=== PATIENT | male | born 1930 | race Caucasian/White ===

== ENCOUNTER 2016-11-17 16:48 | Observation (INO) | payer OTHER ==
[~2016-11-17] VITALS: Ht 172.7 cm; Wt 75.2 kg
[~2016-11-17 16:48] MED LIST: ACET-1311 PO; ASPCH81X PO; CMD75 PO; DORZ1SOL6 OPL; ENOX80IN SQ; GLC/500 PO; IPRASOL4 INH; LATA0.009 OPL; LNX125 PO; LSX40 PO; NTRGSL/4 UT; OXGN; PANT40TA PO; ROSU20TA PO; SITA100T3 PO; SPRIN INH; SYMIN INH; TAMS0.4C38 PO; TPRSR25 PO
[2016-11-17] MEDS ORDERED: SODIUM CHLORIDE 0.9% 150ML 150 ML IV STA (17:08)
[2016-11-17 17:21] LABS: HEMATOCRIT 35.7 % (42-52); MEAN CELL VOLUME 99.4 fL (80-100); MEAN CORPUSCULAR HEMOGLOBIN 31.5 pg (25-34); MEAN CORPUSCULAR HGB CONC 31.7 g/dl (32-36); MEAN PLATELET VOLUME 10.7 fL (7.4-10.4); PLATELET COUNT 179 K/uL (130-400); RED BLOOD COUNT 3.59 M/uL (4.7-6.1); WHITE BLOOD COUNT 9.95 K/uL (4.8-10.8)
--- NOTE | 2016-11-17 17:28 | DIAGNOSTIC IMAGING REPORT ---
CHEST ONE VIEW PORTABLE CLINICAL HISTORY: low grade fever, hypotension dyspnea COMPARISON STUDY: 09/24/2016 FINDINGS: Mild cardiomegaly. Prior median sternotomy. Trace pleural fluid right base unchanged in the prior study. Prominent pulmonary vasculature. IMPRESSION: Mild congestive failure. Electronically signed by: Yousuf Lozano M.D. 11/17/2016 5:27 PM Dictated Date/Time: 11/17/2016 5:26 PM
--- NOTE | 2016-11-17 17:32 | EMERGENCY ROOM VISIT NOTE ---
History Report prepared by Chetan: Heidy Gaffney Under the Supervision of: Dr. Glenna Barnes M.D. First contact with patient: 16:54 Chief Complaint: HYPOTENSION Stated Complaint: SYNCOPE History of Present Illness The patient is an 86 year old male who presents to the Emergency Room via EMS to be evaluated for an episode of hypotension with onset SUPPORT TEAM MEMBER. Per nursing staff , the patient has been having trouble with his blood pressure for about 5 months. His blood pressure medication was stopped. The patient is a resident at [facility] where he is undergoing rehabilitation. Today he was having orthostatic vitals taken. After standing up, the patient's blood pressure became very low and his residence staff reported that he passed out. The patient denies passing out. Afterwards, the patient was clammy. The patient denies fever, loss of appetite. The patient wears oxygen at all times. Additionally, the patient has a history of open heart surgery and he has a pacemaker in place. Source of History: patient, nursing staff Onset: 5 months ago Position: other (global) Quality: other (hypotension) Timing: other (episode ) Associated Symptoms: No LOC, No fevers Review of Systems See HPI for pertinent positives & negatives. A total of 10 systems reviewed and were otherwise negative. Past Medical & Surgical Medical Problems: (1) Benign neoplasm of colon (2) BPH (benign prostatic hypertrophy) (3) CAD (coronary artery disease) (4) Carotid stenosis (5) Chronic diastolic CHF (congestive heart failure) (6) Chronic respiratory failure (7) CKD (chronic kidney disease), stage III (8) Complete heart block (9) DM type 2 (diabetes mellitus, type 2) (10) Dyslipidemia (11) H/o hemidiaphragm dysfunction (12) History of hypotension (13) History of tobacco abuse (14) Near syncope (15) Pacemaker (16) Severe aortic stenosis Surgical Problems: (1) Aortic valve replaced (2) H/O colonoscopy (3) H/O knee surgery (4) H/O ventral hernia repair (5) History of cataract surgery (6) S/P AVR (aortic valve replacement) (7) S/P CABG (coronary artery bypass graft) (8) S/P carotid endarterectomy (9) S/P coronary artery stent placement (10) S/P placement of cardiac pacemaker Family History No pertinent family history Social History Smoking Status: Former Smoker Drug Use: none Marital Status: single Occupation Status: retired Current/Historical Medications Scheduled Aspirin (Aspirin Chewable), 81 MG PO DAILY Budesonide/Formoterol Fumarate (Symbicort 160-4.5 Mcg/Act), 2 PUFFS INH BID Carvedilol (Coreg), 3.125 MG PO BIDM Digoxin (Digoxin), 0.125 MG PO [id number] Dorzolamide Hcl-Timolol Maleat (Cosopt Oph), 1 DROPS OPL BID Furosemide (Furosemide), 40 MG PO QAM Insulin Aspart (Novolog Flexpen), 10 SQ TID Insulin Glargine (Lantus Solostar), 16 SC QPM Latanoprost 0.005% Oph (Xalatan 0.005% Oph), 1 DROP OPL HS Metformin Hcl (Glucophage), 500 MG PO BIDM Pantoprazole (Protonix), 40 MG PO DAILY Prednisone Tab (Prednisone), 10 MG PO DAILY Rosuvastatin Calcium (Crestor), 20 MG PO HS Sitagliptin Phosphate (Januvia), 100 MG PO DAILY Tamsulosin Hcl (Flomax), 0.4 MG PO QPM Tiotropium [place] (Spiriva Handihaler), 1 PUFF INH QAM Warfarin Sod (Jantoven), 7.5 MG PO DAILY Warfarin Sod (Jantoven), 5 MG PO DAILY Scheduled PRN Acetaminophen (Tylenol), 325 MG PO Q6H PRN for Pain Ipratropium-Albuterol (Duoneb), 1 TREATMENT INH Q4H PRN for SOB/Wheezing Nitroglycerin (Nitrostat), 0.4 MG UT PRN PRN for Chest Pain Allergies Coded Allergies: Aspirin (Verified Allergy, Unknown, HIVES (IF TAKES MORE THAN 81 MG), ) Physical Exam Vital Signs Date Time Temp Pulse Resp B/P Pulse Ox O2 Delivery O2 Flow Rate FiO2 11/17/16 19:39 81 20 89/62 97 Room Air 11/17/16 17:15 81 101/61 83 97/51 11/17/16 17:03 81 11/17/16 16:57 37.2 81 20 108/65 100 Room Air Physical Exam Vital signs reviewed. General: Elderly and chronically ill appearing, noted to be orthostatic. HEENT: No scleral icterus, opacity to the right cornea, neck supple. Atraumatic. Chest: Post surgical change is noted to the anterior chest wall and is well healed. Cardiovascular: Regular rate and rhythm, systolic ejection murmur. Pulmonary: Diminished breath sounds in the right lower lung tamayo. Abdomen: Soft, nontender, nondistended, positive bowel sounds. Musculoskeletal: Atraumatic, no peripheral edema. Neurologic: Patient awake alert and oriented x 3, full strength in all 4 extremities. Cranial nerves 2 through 12 grossly intact. Skin: Warm, dry, no rash Medical Decision & Procedures ER Provider Diagnostic Interpretation: X-ray results as stated below per interpretation by me and the radiologist: CHEST ONE VIEW PORTABLE CLINICAL HISTORY: low grade fever, hypotension dyspnea COMPARISON STUDY: 09/24/2016 FINDINGS: Mild cardiomegaly. Prior median sternotomy. Trace pleural fluid right base unchanged in the prior study. Prominent pulmonary vasculature. IMPRESSION: Mild congestive failure. Electronically signed by: Yousuf Lozano M.D. 11/17/2016 5:27 PM Dictated Date/Time: 11/17/2016 5:26 PM Laboratory Results 11/17/16 17:10 Red Blood Count 3.59, Mean Corpuscular Volume 99.4, Mean Corpuscular Hemoglobin 31.5, Mean Corpuscular Hemoglobin Concent 31.7, Mean Platelet Volume 10.7, Neutrophils (%) (Auto) 66.5, Lymphocytes (%) (Auto) 16.7, Monocytes (%) (Auto) 14.6, Eosinophils (%) (Auto) 1.7, Basophils (%) (Auto) 0.1, Neutrophils # (Auto ) 6.62, Lymphocytes # (Auto) 1.66, Monocytes # (Auto) 1.45, Eosinophils # (Auto ) 0.17, Basophils # (Auto) 0.01 11/17/16 17:10 Test 11/17/16 17:10 11/17/16 17:35 11/17/16 17:49 11/17/16 18:16 White Blood Count 9.95 K/uL (4.8-10.8) Red Blood Count 3.59 M/uL (4.7-6.1) Hemoglobin 11.3 g/dL (14.0-18.0) Hematocrit 35.7 % (42-52) Mean Corpuscular Volume 99.4 fL (80-100) Mean Corpuscular Hemoglobin 31.5 pg (25-34) Mean Corpuscular Hemoglobin Concent 31.7 g/dl (32-36) Platelet Count 179 K/uL (130-400) Mean Platelet Volume 10.7 fL (7.4-10.4) Neutrophils (%) (Auto) 66.5 % Lymphocytes (%) (Auto) 16.7 % Monocytes (%) (Auto) 14.6 % Eosinophils (%) (Auto) 1.7 % Basophils (%) (Auto) 0.1 % Neutrophils # (Auto) 6.62 K/uL (1.4-6.5) Lymphocytes # (Auto) 1.66 K/uL (1.2-3.4) Monocytes # (Auto) 1.45 K/uL (0.11-0.59) Eosinophils # (Auto) 0.17 K/uL (0-0.5) Basophils # (Auto) 0.01 K/uL (0-0.2) RDW Standard Deviation 53.6 fL (36.4-46.3) RDW Coefficient of Variation 14.7 % (11.5-14.5) Immature Granulocyte % (Auto) 0.4 % Immature Granulocyte # (Auto) 0.04 K/uL (0.00-0.02) Prothrombin Time 23.1 SECONDS (9.0-12.0) Prothromb Time International Ratio 2.1 (0.9-1.1) Activated Partial Thromboplast Time 33.2 SECONDS (21.0-31.0) Partial Thromboplastin Ratio 1.3 Anion Gap 7.0 mmol/L (3-11) Est Creatinine Clear Calc Drug Dose 29.6 ml/min Estimated GFR () 41.1 Estimated GFR (Non- 35.5 BUN/Creatinine Ratio 19.5 (10-20) Calcium Level 9.0 mg/dl (8.5-10.1) Magnesium Level 1.8 mg/dl (1.8-2.4) Total Bilirubin 0.5 mg/dl (0.2-1) Direct Bilirubin < 0.1 mg/dl (0-0.2) Aspartate Amino Transf (AST/SGOT) 22 U/L (15-37) Alanine Aminotransferase (ALT/SGPT) 20 U/L (12-78) Alkaline Phosphatase 61 U/L (45-117) Total Creatine Kinase 145 U/L (39-308) Creatine Kinase MB 3.5 ng/ml (0.5-3.6) Creatine Kinase MB Ratio 2.4 (0-3.0) Troponin I 0.127 ng/ml (0-0.045) Total Protein 6.8 gm/dl (6.4-8.2) Albumin 2.9 gm/dl (3.4-5.0) Digoxin Level 1.0 ng/ml (0.8-2.0) Urine Color YELLOW Urine Appearance CLEAR (CLEAR) Urine pH 7.0 (4.5-7.5) Urine Specific [place] 1.003 (1.000-1.030) Urine Protein TRACE (NEG) Urine Glucose (UA) NEG (NEG) Urine Ketones NEG (NEG) Urine Occult Blood TRACE (NEG) Urine Nitrite NEG (NEG) Urine Bilirubin NEG (NEG) Urine Urobilinogen NEG (NEG) Urine Leukocyte Esterase NEG (NEG) Urine WBC (Auto) 1-5 /hpf (0-5) Urine RBC (Auto) 0-4 /hpf (0-4) Urine Hyaline Casts (Auto) 1-5 /lpf (0-5) Urine Epithelial Cells (Auto) 10-20 /lpf (0-5) Urine Bacteria (Auto) NEG (NEG) Bedside Troponin I 0.100 ng/ml (0-0.045) Bedside Lactic Acid Venous 1.26 mmol/L (0.90-1.70) Laboratory results per my review. Medications Administered Medications (Trade) Dose Ordered Sig/Jelly Route Start Time Stop Time Status Last Admin Dose Admin Sodium Chloride (Nss 150ml) 150 ml @ 999 mls/hr Q10M STAT IV 11/17/16 17:08 11/17/16 17:17 DC 11/17/16 17:20 999 MLS/HR ECG Indication: syncope Rate (beats per minute): 82 Rhythm: sinus rhythm Findings: 1st degree AV block, RBBB, no acute ischemic change, left axis deviation, no ectopy, other (repolarization abnormality) ED Course 1709: Past medical records reviewed. The patient was evaluated in room B7. A complete history and physical examination was performed. 1708: Sodium Chloride 150 ml @ 999 mls/hr IV 1850: I discussed the case with Dr. Rahman ([facility]); he will further evaluate the patient. Medical Decision The patient is an 86 year old male who presents to the ED with complaints of hypotension. Differentials include: Differential diagnosis: Etiologies such as benign positional vertigo, dehydration, hypovolemia, anemia, tumor, infection, hypoglycemia, electrolyte abnormalities, cardiac sources, intracerebral event, toxicologic, neurologic, as well as others were entertained. This patient was evaluated and appeared to be in no significant distress. IV access was obtained and laboratory work was drawn. Patient was placed on the manager web application and found to be in a normal sinus rhythm. He was hydrated with normal saline solution for a mild hypotension. Patient was asymptomatic. Laboratory work reveals a mild elevation of the troponin at 0.10. Review the patient's records indicates that he is always slightly elevated with his troponin. EKG reveals no evidence of acute ischemia or ectopy. Chest x-ray reveals mild congestive changes. Case was discussed with the hospitalist service. He will evaluate the patient for further management. Consults Time Called: 1847 Consulting Physician: Dr. Rahman ([facility]); Returned Call: 1849 I discussed the [facility] he will further evaluate the patient. Impression Primary Impression: Elevated troponin Additional Impressions: Near syncope Hypotension Scribe Attestation The scribe's documentation has been prepared under my direction and personally reviewed by me in its entirety. I confirm that the note above accurately reflects all work, treatment, procedures, and medical decision making performed by me. Departure Information Dispostion Being Evaluated By Hospitalist Referrals Dave Harris M.D. (PCP) Patient Instructions [facility] Problem Qualifiers Additional Impressions: Hypotension Hypotension type: orthostatic hypotension Qualified Codes: I95.1 - Orthostatic hypotension
[2016-11-17 17:36] LABS: BASO % 0.1 %; BASO ABS # 0.01 K/uL (0-0.2); COMPLETE YES; EOS % 1.7 %; IG% 0.4 %; LYMPH % 16.7 %; LYMPH ABS # 1.66 K/uL (1.2-3.4); MONO % 14.6 %; NEUT % 66.5 %
[2016-11-17 17:45] LABS: ALT/SGPT 20 U/L (12-78); BLOOD UREA NITROGEN 33 mg/dl (7-18); BUN/CREATININE RATIO 19.5 (10-20); CARBON DIOXIDE 37 mmol/L (21-32); CHLORIDE 97 mmol/L (98-107); GLUCOSE 114 mg/dl (70-99); MAGNESIUM 1.8 mg/dl (1.8-2.4); POTASSIUM 3.7 mmol/L (3.5-5.1); SODIUM 141 mmol/L (136-145)
[2016-11-17 17:51] LABS: ALKALINE PHOSPHATASE 61 U/L (45-117); AST/SGOT 22 U/L (15-37); CKMB/CK RATIO 2.4 (0-3.0)
[2016-11-17 17:53] LABS: URINE APPEARANCE CLEAR (CLEAR); URINE BILIRUBIN NEG (NEG); URINE COLOR YELLOW; URINE NITRITE NEG (NEG); URINE SPECIFIC GRAVITY 1.003 (1.000-1.030); UROBILINOGEN NEG (NEG); ZZUR CULT IF INDIC CLEAN CATCH NO
[2016-11-17 17:55] LABS: MANUAL MICROSCOPIC REQUIRED? NO; REVIEW REQ? NO
[2016-11-17] MEDS ORDERED: NVLGI/PEN SQ (19:08)
[2016-11-17] MEDS ORDERED: PRED10TA PO (19:08)
[2016-11-17] MEDS ORDERED: INSDGIPEN SC (19:08)
[2016-11-17] MEDS ORDERED: CARV3.122 PO (19:08)
[2016-11-17] MEDS ORDERED: WARF5TAB7 PO (19:08)
[2016-11-17] MEDS ORDERED: WARF7.5T4 PO (19:08)
[2016-11-17 19:44] LABS: INR 2.1 (0.9-1.1); PARTIAL THROMBOPLASTIN RATIO 1.3; PROTHROMBIN TIME (PATIENT) 23.1 SECONDS (9.0-12.0)
[2016-11-17] MEDS ORDERED: IV FLUIDS COMPLETED PRN (20:00)
--- NOTE | 2016-11-17 20:06 | History and Physical ---
History & Physical Date & Time of Service: Nov 17, 2016 at 19:41 Chief Complaint: Syncope Primary Care Physician: Dave Harris M.D. History of Present Illness Source: patient This is an 86 y/o male with PMHx of CKD stage 3, CAD s/p CABG, s/p AVR, IDDM, Afib on Coumadin, Diastolic CHF on Lasix, Dyslipidemia and other problems as outlined below who presents to the ED from [facility] with near-syncopal episode this afternoon. Pt has been residing at [facility] for rehabilitation since an admission for CHF in June 2016. He has been having trouble with hypotension for the past few months and was recently taken off all of his antihypertensive medications (aside from metoprolol). Today, nursing staff stood the patient up to check orthostatic vitals and his BP dropped significantly and he passed out. Per patient he does not think that he completely lost consciousness. He denies hitting his head. Pt denies fever/ chills, diaphoresis, chest pain, palpitations, SOB, abd pain, N/V, bowel or bladder issues, LE edema and calf pain. In the ED, patient was hypotensive on arrival. Pt is afebrile with no leukocytosis. HgB 11.3. creat 1.7. Trop 0.159. EKG no acute ischemic change. CXR mild congestion. Pt received gentle fluid in ED and will be admitted for further evaluation and treatment. Past Medical/Surgical History Medical Problems: (1) Benign neoplasm of colon Status: Chronic (2) BPH (benign prostatic hypertrophy) Status: Chronic (3) CAD (coronary artery disease) Status: Chronic (4) Carotid stenosis Status: Chronic (5) Chronic diastolic CHF (congestive heart failure) Permanent Comment: EF 60-64% on echo 02/21/16 Status: Chronic (6) Chronic respiratory failure Status: Chronic (7) CKD (chronic kidney disease), stage III Status: Chronic (8) Complete heart block Status: Chronic (9) DM type 2 (diabetes mellitus, type 2) Status: Chronic (10) Dyslipidemia Status: Chronic (11) H/o hemidiaphragm dysfunction Permanent Comment: right Status: Chronic (12) History of hypotension Status: Chronic (13) History of tobacco abuse Status: Chronic (14) Severe aortic stenosis Status: Chronic Surgical Problems: (1) Aortic valve replaced Status: Resolved (2) H/O colonoscopy Permanent Comment: 2007 sigmoid diverticulosis, hyperplastic polyp Status: Chronic (3) H/O knee surgery Status: Chronic (4) H/O ventral hernia repair Status: Chronic (5) History of cataract surgery Status: Chronic (6) S/P AVR (aortic valve replacement) Status: Chronic (7) S/P CABG (coronary artery bypass graft) Permanent Comment: x1 Status: Chronic (8) S/P carotid endarterectomy Permanent Comment: left Status: Chronic (9) S/P coronary artery stent placement Permanent Comment: 1998- stenting of the RCA and LAD 2009- repeat stenting of RCA and LAD Status: Chronic (10) S/P placement of cardiac pacemaker Permanent Comment: 2011 Status: Chronic Family History No pertinent family history Social History Smoking Status: Former Smoker (quit 1965) Alcohol Use: none Drug Use: none Marital Status: single Housing status: [facility] ([facility] Occupational Status: retired Allergies Coded Allergies: Aspirin (Verified Allergy, Unknown, HIVES (IF TAKES MORE THAN 81 MG), ) Home Medications Scheduled Aspirin (Aspirin Chewable), 81 MG PO DAILY Budesonide/Formoterol Fumarate (Symbicort 160-4.5 Mcg/Act), 2 PUFFS INH BID Carvedilol (Coreg), 3.125 MG PO BIDM Digoxin (Digoxin), 0.125 MG PO [id number]@1600 Dorzolamide Hcl-Timolol Maleat (Cosopt Oph), 1 DROPS OPL BID Furosemide (Furosemide), 40 MG PO QAM Insulin Aspart (Novolog Flexpen), 10 SQ TID Insulin Glargine (Lantus Solostar), 16 SC QPM Latanoprost 0.005% Oph (Xalatan 0.005% Oph), 1 DROP OPL HS Metformin Hcl (Glucophage), 500 MG PO BIDM Pantoprazole (Protonix), 40 MG PO DAILY Prednisone Tab (Prednisone), 10 MG PO DAILY Rosuvastatin Calcium (Crestor), 20 MG PO HS Sitagliptin Phosphate (Januvia), 100 MG PO DAILY Tamsulosin Hcl (Flomax), 0.4 MG PO QPM Tiotropium [place] (Spiriva Handihaler), 1 PUFF INH QAM Warfarin Sod (Jantoven), 7.5 MG PO DAILY Warfarin Sod (Jantoven), 5 MG PO DAILY Scheduled PRN Acetaminophen (Tylenol), 325 MG PO Q6H PRN for Pain Ipratropium-Albuterol (Duoneb), 1 TREATMENT INH Q4H PRN for SOB/Wheezing Nitroglycerin (Nitrostat), 0.4 MG UT PRN PRN for Chest Pain Review of Systems Constitutional: No chills, No fatigue, No fever, No sweats, No weakness Eyes: + 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), No worsening of vision Respiratory: No cough, No shortness of breath Cardiovascular: No chest pain, No claudication, No edema, No palpitations Abdomen: No GI bleeding, No constipation, No diarrhea, No nausea, No pain, No vomiting Musculoskeletal: No calf pain, No swelling Genitourinary - Male: No dysuria Neurologic: No weakness Psychiatric: No depression symptoms Endocrine: No fatigue Hematologic / Lymphatic: No abnormal bleeding/bruising Integumentary: No new/changing skin lesions Physical Exam Vital Signs Date Time Temp Pulse Resp B/P Pulse Ox O2 Delivery O2 Flow Rate FiO2 11/17/16 17:15 81 101/61 83 97/51 11/17/16 17:03 81 11/17/16 16:57 37.2 81 20 108/65 100 Room Air General Appearance: WD/WN, no apparent distress, + pertinent finding (Pt is laying comfortably in bed ) Head: normocephalic, atraumatic Eyes: normal inspection, PERRL, EOMI, + pertinent finding (R eye opaque ( chronic finding)) ENT: hearing grossly normal Neck: supple Respiratory/Chest: chest non-tender, lungs clear, normal breath sounds, no respiratory distress Cardiovascular: regular rate, rhythm, no edema, no murmur Abdomen/GI: normal bowel sounds, non tender, soft Back: normal inspection Extremities/Musculoskelatal: normal inspection, no calf tenderness, no pedal edema Neurologic/Psych: alert, normal mood/affect, oriented x 3 Skin: normal color, warm/dry Diagnostics Laboratory Results Results Past 24 Hours Test 11/17/16 17:10 11/17/16 17:35 11/17/16 17:49 11/17/16 18:16 Range/Units White Blood Count 9.95 4.8-10.8 K/uL Red Blood Count 3.59 4.7-6.1 M/uL Hemoglobin 11.3 14.0-18.0 g/dL Hematocrit 35.7 42-52 % Mean Corpuscular Volume 99.4 80-100 fL Mean Corpuscular Hemoglobin 31.5 25-34 pg Mean Corpuscular Hemoglobin Concent 31.7 32-36 g/dl Platelet Count 179 130-400 K/uL Mean Platelet Volume 10.7 7.4-10.4 fL Neutrophils (%) (Auto) 66.5 % Lymphocytes (%) (Auto) 16.7 % Monocytes (%) (Auto) 14.6 % Eosinophils (%) (Auto) 1.7 % Basophils (%) (Auto) 0.1 % Neutrophils # (Auto) 6.62 1.4-6.5 K/uL Lymphocytes # (Auto) 1.66 1.2-3.4 K/uL Monocytes # (Auto) 1.45 0.11-0.59 K/uL Eosinophils # (Auto) 0.17 0-0.5 K/uL Basophils # (Auto) 0.01 0-0.2 K/uL RDW Standard Deviation 53.6 36.4-46.3 fL RDW Coefficient of Variation 14.7 11.5-14.5 % Immature Granulocyte % (Auto) 0.4 % Immature Granulocyte # (Auto) 0.04 0.00-0.02 K/uL Sodium Level 141 136-145 mmol/L Potassium Level 3.7 3.5-5.1 mmol/L Chloride Level 97 98-107 mmol/L Carbon Dioxide Level 37 21-32 mmol/L Anion Gap 7.0 3-11 mmol/L Blood Urea Nitrogen 33 7-18 mg/dl Creatinine 1.70 0.60-1.40 mg/dl Est Creatinine Clear Calc Drug Dose 29.6 ml/min Estimated GFR () 41.1 Estimated GFR (Non- 35.5 BUN/Creatinine Ratio 19.5 10-20 Random Glucose 114 70-99 mg/dl Calcium Level 9.0 8.5-10.1 mg/dl Magnesium Level 1.8 1.8-2.4 mg/dl Total Bilirubin 0.5 0.2-1 mg/dl Direct Bilirubin < 0.1 0-0.2 mg/dl Aspartate Amino Transf (AST/SGOT) 22 15-37 U/L Alanine Aminotransferase (ALT/SGPT) 20 12-78 U/L Alkaline Phosphatase 61 45-117 U/L Total Creatine Kinase 145 39-308 U/L Creatine Kinase MB 3.5 0.5-3.6 ng/ml Creatine Kinase MB Ratio 2.4 0-3.0 Total Protein 6.8 6.4-8.2 gm/dl Albumin 2.9 3.4-5.0 gm/dl Urine Color YELLOW Urine Appearance CLEAR CLEAR Urine pH 7.0 4.5-7.5 Urine Specific [place] 1.003 1.000-1.030 Urine Protein TRACE NEG Urine Glucose (UA) NEG NEG Urine Ketones NEG NEG Urine Occult Blood TRACE NEG Urine Nitrite NEG NEG Urine Bilirubin NEG NEG Urine Urobilinogen NEG NEG Urine Leukocyte Esterase NEG NEG Urine WBC (Auto) 1-5 0-5 /hpf Urine RBC (Auto) 0-4 0-4 /hpf Urine Hyaline Casts (Auto) 1-5 0-5 /lpf Urine Epithelial Cells (Auto) 10-20 0-5 /lpf Urine Bacteria (Auto) NEG NEG Bedside Troponin I 0.100 0-0.045 ng/ml Bedside Lactic Acid Venous 1.26 0.90-1.70 mmol/L Microbiology Results 11/17/16 Blood Culture, Received Pending 11/17/16 Blood Culture, Received Pending Diagnostic Radiology CXR IMPRESSION: Mild congestive failure. EKG EKG: sinus rhythm at 82 bpm with 1* AV block, RBBB and no acute ischemic change Impression Assessment and Plan NEAR-SYNCOPAL EPISODE LIKELY SECONDARY TO HYPOTENSION pt presented with near-syncopal episode with standing -admit observation status to telemetry -likely secondary to hypotension, ? over diuresis -hold Lasix -see Dr. Rahman's addendum for further Assessment and Plan ELEVATED TROPONIN -h/o CAD s/p CABG -Trop 0.159; chronically elevated trop -monitor with serial enzymes -EKG-no acute ischemic change -cont ASA, BB and statin -pt currently denies anginal sxs MATTHIEU ON CKD STAGE 3 -baseline creatinine 1.2-1.4; creatinine currently 1.7 -received gentle IVF in ED -hold Lasix for now -monitor with daily prp and avoid nephrotoxic agents when able PAF ON COUMADIN -EKG: sinus rhythm -INR therapeutic; cont to monitor daily -cont Coumadin DIASTOLIC CHF ON LASIX -pt does not appear volume overloaded -echo 09/2016 EF 50-55% with mild tricuspid regurg and mild mitral regurg -hold Lasix for now due to MATTHIEU/hypotension -cont BB and digoxin -check dig level -monitor volume status with I&Os and daily weights H/O PE -cont Coumadin GERD -cont PPI DYSLIPIDEMIA -cont statin DVT PROPHYLAXIS -on Coumadin CODE STATUS -FULL CODE per discussion with patient upon admission DISPO Observation status until further workup is complete. Pt seen in collaboration with Dr. Rahman. Please see his addendum for further details. Thanks! Assessment/Plan IM ATTENDING : Patient seen examined. Preceding documentation by Ms. Anitha Landeros PA-C, reviewed. FINAL ASSESSMENT AND PLAN as follows : 1. Near syncope secondary to above to hypotension multifactorial : recent outpatient beta mario regimen changes (outpatient Lopressor recently switched to Coreg). ARF, mild clinical dehydration. 2. Chronic respiratory failure secondary to chronic obstructive pulmonary disease/ILD past tobacco abuse pulmo status at baseline px has been on Prednisone 10 mg daily (from steroid taper from 09/2017 hosp [facility] for COPD exacerbation) for over a month now 3. hx SSS sp PPM, INR tx 4. hx CAD sp CABG/stenting/hx bioprosthetic AVR 5. CVA/PVD as per records 6. DM2 insulin requiring suboptimal control as of recent HgA1c, 8.6 as of August 2016. OBS PCU Appropriate to hold antihypertensives and diuretics for now. Would favor discontinuing Coreg and reverting back to lower dose of Lopressor once px normotensive Will defer issue to Cardiology. (Patient known to Dr. Marx) Monitor creatinine response to IV fluids. Hold home diuretics, FLORA inhibitor for now until creatinine at baseline Decrease Prednisone to 5 mg daily, will d/w AM provider about taper schedule Basal insulin, ISS BG goal 140-180. Carb count coverage indicated for suboptimal blood sugar control. Patient due for hemoglobin A1c recheck. DVT prophylaxis, Coumadin INR 2-3. DNR.
[2016-11-17] MEDS ORDERED: ONDANSETRON INJ 2 MG/ML 2 ML VIAL IV PRN (20:15)
[2016-11-17] MEDS ORDERED: NITROGLYCERIN 0.4 MG SL PER TAB CHARGE UT PRN (20:15)
[2016-11-17] MEDS ORDERED: TRAMADOL HCL 50 MG TAB PO PRN (20:15)
[2016-11-17] MEDS ORDERED: DEXTROSE 50% 50 ML SYR IV PRN (20:15)
[2016-11-17] MEDS ORDERED: ACETAMINOPHEN 325 MG TAB PO PRN ×2 (20:15)
[2016-11-17] MEDS ORDERED: NITROGLYCERIN 0.4 MG SL PER TAB CHARGE SL PRN (20:15)
[2016-11-17] MEDS ORDERED: GLUCAGON FOR INJ 1 MG VIAL SQ PRN (20:15)
[2016-11-17] MEDS ORDERED: GLUCOSE 40% GEL 15 GM TUBE PO PRN (20:15)
[2016-11-17] MEDS ORDERED: ALBUT/IPRATROP 3MG/0.5MG NEB 3 ML VIAL INH PRN (20:15)
[2016-11-17] MEDS ORDERED: HYDROmorphone INJ 0.5 MG/0.5 ML SYR IV PRN (20:15)
[2016-11-17] MEDS ORDERED: GLUCOSE 10 TABS/TUBE PO PRN (20:15)
[2016-11-17] MEDS ORDERED: SODIUM CHLORIDE 0.9% 500ML 500 ML IV ONE (20:15)
[2016-11-17 20:35] VITALS: BP 103/67; PULSE 80; TEMP 36.5; O2SAT 90
[2016-11-17] MEDS: INSULIN ASPART 100 UNITS/ML 3 ML PEN SC SCH (21:00)
[2016-11-17] MEDS ORDERED: WARFARIN SOD 3 MG TAB PO ONE (21:00)
--- NOTE | 2016-11-17 21:36 | HISTORY & PHYSICAL EXAMINATION ---
DATE OF ADMISSION: 11/17/2016 IM ATTENDING : Patient seen examined. Preceding documentation by Ms. Anitha Landeros PA-C, reviewed. FINAL ASSESSMENT AND PLAN as follows : 1. Near syncope secondary to above to hypotension multifactorial : recent outpatient beta mario regimen changes (outpatient Lopressor recently switched to Coreg). ARF, mild clinical dehydration. 2. Chronic respiratory failure secondary to chronic obstructive pulmonary disease/ILD past tobacco abuse pulmo status at baseline px has been on Prednisone 10 mg daily (from steroid taper from 09/2017 hosp [facility] for COPD exacerbation) for over a month now 3. hx SSS sp PPM, INR tx 4. hx CAD sp CABG/stenting/hx bioprosthetic AVR 5. CVA/PVD as per records 6. DM2 insulin requiring suboptimal control as of recent HgA1c, 8.6 as of August 2016. OBS PCU Appropriate to hold antihypertensives and diuretics for now. Would favor discontinuing Coreg and reverting back to lower dose of Lopressor once px normotensive Will defer issue to Cardiology. (Patient known to Dr. Marx) Monitor creatinine response to IV fluids. Hold home diuretics, FLORA inhibitor for now until creatinine at baseline Decrease Prednisone to 5 mg daily, will d/w AM provider about taper schedule Basal insulin, ISS BG goal 140-180. Carb count coverage indicated for suboptimal blood sugar control. Patient due for hemoglobin A1c recheck. DVT prophylaxis, Coumadin INR 2-3. DNR. MTDD
[2016-11-17] MEDS: LATANOPROST 0.005% OP SOLN 2.5 ML BTL OPL SCH (22:20)
[2016-11-17] MEDS: DORZOLAMIDE/TIMOLOL 22.3/6.8MG/ML 10 ML BTL OPL SCH (22:20)
[2016-11-17] MEDS: BUDESONIDE/FORMOTEROL FUMARATE 160/4.5 60 PUFFS/INHALER INH SCH (22:20)
[2016-11-17] MEDS: ROSUVASTATIN CALCIUM 20 MG TAB PO SCH (22:24)
[2016-11-17] MEDS: TAMSULOSIN HCL 0.4 MG CAP PO SCH (22:25)
[2016-11-17] MEDS: INSULIN GLARGINE SOLOSTAR 100 UNITS/ML 3 ML PEN SC SCH (22:29)
[2016-11-17 22:31] VITALS: BP 91/49; PULSE 78
[2016-11-17 22:33] VITALS: BP 103/67; PULSE 80; TEMP 36.5; O2SAT 90; Ht 172.7 cm; Wt 75.2 kg
[2016-11-17 23:27] VITALS: BP 103/62; PULSE 75; TEMP 36.5; O2SAT 100
[2016-11-18] VITALS (10 sets, daily range): BP systolic 81–133; BP diastolic 39–73; PULSE 70–76; TEMP 36.3–36.7; O2SAT 95–99
[2016-11-18 05:38] LABS: BASO % 0.1 %; BASO ABS # 0.01 K/uL (0-0.2); COMPLETE YES; EOS % 2.6 %; HEMATOCRIT 32.9 % (42-52); IG% 0.4 %; LYMPH % 19.1 %; LYMPH ABS # 1.49 K/uL (1.2-3.4); MEAN CELL VOLUME 99.4 fL (80-100); MEAN CORPUSCULAR HEMOGLOBIN 30.8 pg (25-34); MEAN PLATELET VOLUME 9.9 fL (7.4-10.4); MONO % 15.3 %; NEUT % 62.5 %; PLATELET COUNT 147 K/uL (130-400); RED BLOOD COUNT 3.31 M/uL (4.7-6.1); WHITE BLOOD COUNT 7.82 K/uL (4.8-10.8)
[2016-11-18 05:46] LABS: INR 1.9 (0.9-1.1); PROTHROMBIN TIME (PATIENT) 21.3 SECONDS (9.0-12.0)
[2016-11-18 06:07] LABS: BUN/CREATININE RATIO 19.2 (10-20); CALCIUM 8.8 mg/dl (8.5-10.1); CREATININE 1.3 mg/dl (0.60-1.40); POTASSIUM 3.8 mmol/L (3.5-5.1)
[2016-11-18] MEDS: BUDESONIDE/FORMOTEROL FUMARATE 160/4.5 60 PUFFS/INHALER INH SCH ×2 (08:14→20:51)
[2016-11-18] MEDS: PANTOprazole SOD 40 MG TAB PO SCH (08:15)
[2016-11-18] MEDS: ASPIRIN 81 MG CHEW PO SCH (08:15)
[2016-11-18] MEDS: DORZOLAMIDE/TIMOLOL 22.3/6.8MG/ML 10 ML BTL OPL SCH ×2 (08:16→20:52)
[2016-11-18] MEDS: TIOTROPIUM BROMIDE 5 PUFF/90 MCG INH INH SCH (08:17)
[2016-11-18] MEDS: INSULIN ASPART 100 UNITS/ML 3 ML PEN SC SCH ×4 (08:20→20:57)
[2016-11-18] MEDS: INSULIN GLARGINE SOLOSTAR 100 UNITS/ML 3 ML PEN SC SCH ×2 (08:21→20:57)
[2016-11-18] MEDS ORDERED: SODIUM CHLORIDE 0.9% 500ML 500 ML IV ONE (11:30)
--- NOTE | 2016-11-18 13:37 | CARDIOLOGY CONSULTATION ---
DATE OF CONSULTATION: 11/18/2016 CONSULTATION REQUESTED BY: Dr. Rahman. REASON FOR CONSULTATION: Hypotension and medication management. HISTORY OF PRESENT ILLNESS: Mr. Richardson is a very pleasant and very medically complicated 86-year-old gentleman who normally follows with Dr. Marx of our cardiology practice. He presented from [facility] with a report of presyncope. The patient states he is not quite sure what happened. He states remembering yesterday he just was walking and all of a sudden felt very tired and lightheaded and felt himself going down to the ground. He states his legs seemed to be slowly letting him down onto the ground. He did not injure himself and there was no report of actual loss of consciousness. He was found to be hypotensive and brought into the Emergency Department. Again in the Emergency Department, he was found to be hypotensive. He was given some IV fluids and he started to feel better. All of his antihypertensives have actually been held over the last several days except for his metoprolol, which was continued. Otherwise, he states he has been feeling well. He states he has had a good appetite and eating well. He has been taking his medications as directed. He denies experiencing any chest pain, shortness of breath, palpitations or flu-like symptoms. PAST SURGICAL HISTORY: 1. PCI to the RCA and LAD multiple times. 2. Bioprosthetic AVR and coronary bypass grafting x1 with a vein graft to the PDA in 2011. 3. [employer] dual-chamber permanent pacemaker placement. 4. Left carotid endarterectomy. 5. Knee surgery. 6. Hernia repair. 7. Cataract surgery. 8. Polypectomy. MEDICAL ILLNESSES: 1. Coronary artery disease. 2. Aortic stenosis, status post AVR. 3. Postoperative complete heart block, status post dual-chamber permanent pacemaker placement. 4. Chronic history of hypotension. 5. Carotid occlusive disease. 6. Tobacco abuse. 7. COPD. 8. History of PE, on chronic Coumadin therapy. 9. Diabetes. 10. Interstitial lung disease. 11. Benign prostatic hypertrophy. 12. Paroxysmal atrial fibrillation. FAMILY HISTORY: Noncontributory. SOCIAL HISTORY: The patient has a significant smoking history. Denies any alcohol or recreational drug use. Again, he currently only resides at [facility]. REVIEW OF SYSTEMS: As per HPI, all other review of systems reviewed and negative at this time. ALLERGIES: 1. AMOXICILLIN. 2. ASPIRIN. 3. ERYTHROMYCIN. 4. IBUPROFEN. 5. NIACIN. MEDICATIONS AN OUTPATIENT: 1. Lasix 40 mg daily. 2. Digoxin 0.125 mg every Saturday, Saturday, Saturday, and Saturday. 3. Crestor 20 mg daily. 4. Coreg 3.125 mg b.i.d. 5. Januvia daily. 6. Metformin b.i.d. 7. Protonix daily. 8. Insulin as directed. 9. Coumadin as directed by the Coumadin clinic. 10. Flomax 0.4 mg daily. 11. Two liters of oxygen via nasal cannula as needed. PHYSICAL EXAMINATION: VITALS: Temperature 36.7, pulse 72, respiratory rate 12, and blood pressure 91/52. GENERAL: Awake, alert, and oriented x3, no acute distress, very hard of hearing. Sitting upright in bed. HEENT: Normocephalic and atraumatic. Extraocular muscles intact. Anicteric sclerae with significant sclerosis of the right eye. SKIN: Warm and dry. NECK: Bilateral 3/6 carotid bruits. No JVD. CARDIOVASCULAR: Regular. Positive S4. Normal S1 and S2. No S3. A 2/6 mid to late systolic ejection murmur greatest at the right sternal border second intercostal space without radiation. No rubs. PULMONARY: Clear to auscultation bilaterally. No rales, rhonchi, or wheezing. ABDOMEN: Bowel sounds x4. Soft. No rebound, guarding, or tenderness. No organomegaly. EXTREMITIES: No clubbing, cyanosis or edema. +2 pedal pulses bilaterally. SKIN: Warm and dry. TEST RESULTS: A 12-lead EKG performed today independently reviewed at this time showed sinus rhythm with first-degree AV block, bifascicular block. No significant change compared to previous studies. LABORATORY STUDIES OF SIGNIFICANCE: Sodium 145, potassium 3.8, BUN 25, and creatinine 1.3. IMPRESSION: 1. Symptomatic hypotension. 2. Diastolic dysfunction with normal LV systolic function. 3. Status post aortic valve replacement. 4. History of complete heart block, status post dual-chamber permanent pacemaker placement. 5. Paroxysmal atrial fibrillation. 6. Chronic obstructive pulmonary disease. 7. Interstitial lung disease. 8. Prerenal azotemia. RECOMMENDATIONS: It was my pleasure to see Mr. Richardson in reevaluation today. From a cardiac standpoint, I agree with the discontinuation of his cardiac medications. He can be continued on his digoxin as he has been, given the fact that there are no peripheral effects to this medication. Otherwise, he still to my exam is volume overload. He looks a little dry and is dry by numbers. So, I will give another 500 mL of normal saline slowly at this time for further blood pressure support. The only medication he is on at this point that could be affecting his blood pressure is his Flomax; however, that should be continued to help with urination. His diuretics will be held at this time as well. ABELARDO
[2016-11-18] MEDS ORDERED: DIGOXIN 0.125 MG TAB PO SCH (16:00)
--- NOTE | 2016-11-18 18:51 | Progress Note ---
Internal Med Progress Note Date of Service: Nov 18, 2016. Provider Documentation: SUBJECTIVE: Patient is seen and examined at bedside. States having intermittent dizziness. Denies any chest pain, SOB, blurry vision, headache. OBJECTIVE: Vital Signs-as noted below Physical Exam: General Appearance:Moderately built and nourished, no apparent distress Head: normocephalic, Atraumatic Eyes: normal inspection, EOMI, PERRLA, +Sclerosis of R eye Neck: supple, Trachea midline Respiratory/Chest: Normal breath sounds, + mild creps at bases, No accessory muscle use Cardiovascular: S1, S2, NSR, + systolic murmur Abdomen/GI:Soft, Non tender, Bowel sounds present Extremities/Musculoskelatal:normal inspection, no calf tenderness, cyanosis, clubbing, edema Neurologic/Psych:AAOX3, grossly no focal neurological deficits Skin: normal color, warm Lab data as noted below. ASSESSMENT & PLAN: NEAR-SYNCOPAL: Secondary to Hypotension H/O recent outpatient beta mario regimen changes (outpatient Lopressor recently switched to Coreg) Discontinue coreg, diuretics and ACEs for now Continue digoxin, flomax IVF PRN for hypotension/dizziness and reassess Appreciate cardiology input ELEVATED TROPONIN H/O CAD s/p CABG, hx bioprosthetic AVR Trop 0.159; chronically elevated trop EKG-no acute ischemic change cont ASA, statin for now MATTHIEU ON CKD STAGE III Baseline cr:1.2-1.4 Resolved with IV fluids Avoid nephrotoxic agents when able DM II: Last A1C:8.6 in Aug 2016 Continue ISS, Lantus Accu checks Repeat A1C:pending CHRONIC COPD: No signs of exacerbation Patient is on Prednisone 10 mg daily (from steroid taper from 09/2017 given for COPD exacerbation) Continue steroid taper at 5mg daily PAF ON COUMADIN EKG: sinus rhythm INR therapeutic; cont to monitor continue Coumadin CHRONIC DIASTOLIC CHF No signs of decompensation Last ECHO: In Dec:EF 50-55% hold diuretics secondary to MATTHIEU/hypotension H/O PE continue Coumadin GERD continue PPI DYSLIPIDEMIA continue statin DVT Px On Coumadin CODE STATUS DNR DISPOSITION: Likely to be discharged in next 24-48 hours Vital Signs: Date Time Temp Pulse Resp B/P Pulse Ox O2 Delivery O2 Flow Rate FiO2 11/18/16 16:08 74 11/18/16 14:52 36.6 75 16 100/60 99 Nasal Cannula 2.0 11/18/16 12:00 95 Room Air 2.0 11/18/16 11:58 36.5 76 16 81/39 95 Nasal Cannula 2.0 89/45 11/18/16 08:00 99 Room Air 2.0 11/18/16 07:13 36.7 72 18 91/52 99 Room Air 11/18/16 04:13 36.5 75 20 91/57 98 Nasal Cannula 2.0 11/18/16 04:00 Nasal Cannula 2.0 11/18/16 00:00 Nasal Cannula 2.0 11/17/16 23:27 36.5 75 20 103/62 100 Nasal Cannula 2.0 11/17/16 22:33 36.5 80 24 103/67 90 Nasal Cannula 2.0 11/17/16 22:31 78 91/49 11/17/16 20:35 36.5 80 24 103/67 90 Nasal Cannula 2.0 11/17/16 20:30 82 22 100/48 96 Nasal Cannula 2.0 11/17/16 19:39 81 20 89/62 97 Room Air Lab Results: Results Past 24 Hours Test 11/17/16 21:16 11/18/16 05:15 11/18/16 07:28 11/18/16 11:29 Range/Units Bedside Glucose 123 97 185 70-99 mg/dl White Blood Count 7.82 4.8-10.8 K/uL Red Blood Count 3.31 4.7-6.1 M/uL Hemoglobin 10.2 14.0-18.0 g/dL Hematocrit 32.9 42-52 % Mean Corpuscular Volume 99.4 80-100 fL Mean Corpuscular Hemoglobin 30.8 25-34 pg Mean Corpuscular Hemoglobin Concent 31.0 32-36 g/dl Platelet Count 147 130-400 K/uL Mean Platelet Volume 9.9 7.4-10.4 fL Neutrophils (%) (Auto) 62.5 % Lymphocytes (%) (Auto) 19.1 % Monocytes (%) (Auto) 15.3 % Eosinophils (%) (Auto) 2.6 % Basophils (%) (Auto) 0.1 % Neutrophils # (Auto) 4.89 1.4-6.5 K/uL Lymphocytes # (Auto) 1.49 1.2-3.4 K/uL Monocytes # (Auto) 1.20 0.11-0.59 K/uL Eosinophils # (Auto) 0.20 0-0.5 K/uL Basophils # (Auto) 0.01 0-0.2 K/uL RDW Standard Deviation 54.1 36.4-46.3 fL RDW Coefficient of Variation 14.9 11.5-14.5 % Immature Granulocyte % (Auto) 0.4 % Immature Granulocyte # (Auto) 0.03 0.00-0.02 K/uL Prothrombin Time 21.3 9.0-12.0 SECONDS Prothromb Time International Ratio 1.9 0.9-1.1 Sodium Level 145 136-145 mmol/L Potassium Level 3.8 3.5-5.1 mmol/L Chloride Level 102 98-107 mmol/L Carbon Dioxide Level 40 21-32 mmol/L Anion Gap 3.0 3-11 mmol/L Blood Urea Nitrogen 25 7-18 mg/dl Creatinine 1.30 0.60-1.40 mg/dl Est Creatinine Clear Calc Drug Dose 38.7 ml/min Estimated GFR () 56.9 Estimated GFR (Non- 49.1 BUN/Creatinine Ratio 19.2 10-20 Random Glucose 99 70-99 mg/dl Calcium Level 8.8 8.5-10.1 mg/dl Troponin I 0.128 0-0.045 ng/ml Test 11/18/16 16:09 11/18/16 18:30 Range/Units Bedside Glucose 243 70-99 mg/dl
[2016-11-18] MEDS: WARFARIN SOD 7.5 MG TAB PO SCH (19:59)
[2016-11-18] MEDS: LATANOPROST 0.005% OP SOLN 2.5 ML BTL OPL SCH (20:52)
[2016-11-18] MEDS: TAMSULOSIN HCL 0.4 MG CAP PO SCH (20:54)
[2016-11-18] MEDS: ROSUVASTATIN CALCIUM 20 MG TAB PO SCH (20:54)
[2016-11-19] VITALS (8 sets, daily range): BP systolic 90–125; BP diastolic 49–75; PULSE 76–81; TEMP 36.5–37.2; O2SAT 91–99
[2016-11-19 06:24] LABS: BASO % 0.1 %; BASO ABS # 0.01 K/uL (0-0.2); COMPLETE YES; EOS % 2.2 %; HEMATOCRIT 31.3 % (42-52); IG% 0.3 %; LYMPH % 20.2 %; LYMPH ABS # 1.81 K/uL (1.2-3.4); MEAN CELL VOLUME 97.2 fL (80-100); MEAN CORPUSCULAR HEMOGLOBIN 30.7 pg (25-34); MEAN CORPUSCULAR HGB CONC 31.6 g/dl (32-36); MEAN PLATELET VOLUME 10.4 fL (7.4-10.4); MONO % 14.1 %; NEUT % 63.1 %; PLATELET COUNT 144 K/uL (130-400); RED BLOOD COUNT 3.22 M/uL (4.7-6.1); WHITE BLOOD COUNT 8.94 K/uL (4.8-10.8)
[2016-11-19 06:30] LABS: INR 1.5 (0.9-1.1); PROTHROMBIN TIME (PATIENT) 16.8 SECONDS (9.0-12.0)
[2016-11-19 06:53] LABS: BUN/CREATININE RATIO 13.9 (10-20); CALCIUM 8.9 mg/dl (8.5-10.1); CREATININE 1.4 mg/dl (0.60-1.40); POTASSIUM 4.4 mmol/L (3.5-5.1)
[2016-11-19 07:37] LABS: ESTIMATED AVERAGE GLUCOSE 169 mg/dl; HA1C FLAG Normal (Normal)
[2016-11-19] MEDS: PANTOprazole SOD 40 MG TAB PO SCH (09:12)
[2016-11-19] MEDS: DORZOLAMIDE/TIMOLOL 22.3/6.8MG/ML 10 ML BTL OPL SCH (09:12)
[2016-11-19] MEDS: TIOTROPIUM BROMIDE 5 PUFF/90 MCG INH INH SCH (09:12)
[2016-11-19] MEDS: BUDESONIDE/FORMOTEROL FUMARATE 160/4.5 60 PUFFS/INHALER INH SCH (09:12)
[2016-11-19] MEDS: INSULIN ASPART 100 UNITS/ML 3 ML PEN SC SCH ×3 (09:16→17:40)
[2016-11-19] MEDS: INSULIN GLARGINE SOLOSTAR 100 UNITS/ML 3 ML PEN SC SCH (09:16)
[2016-11-19] MEDS: ASPIRIN 81 MG CHEW PO SCH (12:56)
--- NOTE | 2016-11-19 15:00 | Cardiology Follow-Up ---
Subjective Subjective Date of Service: Nov 19, 2016. Pt evaluation today including: conversation w/ patient, physical exam, chart review, lab review, review of studies, review of inpatient medication list Additional Details: Pt seen and examined, states that he feels well. Nursing reports ambulating in hallway without limitation. Pt denies cp, sob, palpitations, lightheadedness or dizziness. Tele reviewed: sinus rhythm without arrhythmia or significant ectopy. Problem List Medical Problems: (1) Elevated troponin Status: Acute (2) Hypotension Status: Acute (3) Hypoxia Status: Acute Review of Systems Respiratory: + cough, No dyspnea at rest, No dyspnea on exertion, No hemoptysis , No problem reported, No see HPI, No shortness of breath, No sputum, No wheezing Cardiac: No PND, No chest pain, No claudication, No edema, No orthopnea, No palpitations, No problem reported, No see HPI Objective Vital Signs Last Vital Signs Documentation Date Time Temp Pulse Resp B/P Pulse Ox O2 Delivery O2 Flow Rate FiO2 11/19/16 12:09 36.9 79 16 102/51 94 2.0 11/19/16 12:00 Room Air Physical Exam: General Appearance: WD/WN, no apparent distress Eyes: bilateral eyes EOMI ENT: normal ENT inspection, hearing grossly normal, pharynx normal Neck: supple, no adenopathy, thyroid normal, no JVD, no carotid bruits, trachea midline Respiratory/Chest: chest non-tender, lungs clear, normal breath sounds, no respiratory distress, no accessory muscle use Cardiovascular: regular rate, rhythm, no edema, no JVD, no murmur, + gallop/S4 Abdomen: normal bowel sounds, non tender, soft, no organomegaly, no pulsatile mass Extremities: normal inspection, no pedal edema, no calf tenderness Neurologic/Psychiatric: manager investment banking II-XII nml as tested, no motor/sensory deficits, alert, normal mood/affect, oriented x 3 Skin: normal color, warm/dry, no rash Lymphatic: no adenopathy Assessment and Plan 1. orthostatic hypotension resolved with IVF would not resume beta mario ok [facility] from cardiac standpoint 2. diastolic dysfunction would resume lasix on a PRN basis only
--- NOTE | 2016-11-19 15:59 | Progress Note ---
Internal Med Progress Note Date of Service: Nov 19, 2016. Provider Documentation: SUBJECTIVE: Patient is seen and examined at bedside. States dizziness has resolved. Feels well. Offers no other complaints. OBJECTIVE: Vital Signs-as noted below Physical Exam: General Appearance:Moderately built and nourished, no apparent distress Head: normocephalic, Atraumatic Eyes: normal inspection, EOMI, PERRLA, +Sclerosis of R eye Neck: supple, Trachea midline Respiratory/Chest: Normal breath sounds, + mild creps at bases, No accessory muscle use Cardiovascular: S1, S2, NSR, + systolic murmur Abdomen/GI:Soft, Non tender, Bowel sounds present Extremities/Musculoskelatal:normal inspection, no calf tenderness, cyanosis, clubbing, edema Neurologic/Psych:AAOX3, grossly no focal neurological deficits Skin: normal color, warm Lab data as noted below. ASSESSMENT & PLAN: NEAR-SYNCOPAL: Secondary to Hypotension H/O recent outpatient beta mario regimen changes (outpatient Lopressor recently switched to Coreg) Coreg, Lasix held during hospitalization Continue digoxin, flomax IVF PRN for hypotension/dizziness and reassess Appreciate cardiology input Plan: Stop Coreg Lasix to be used on PRN basis only Symptoms completely resolved ELEVATED TROPONIN H/O CAD s/p CABG, hx bioprosthetic AVR Trop 0.159; chronically elevated trop EKG-no acute ischemic change cont ASA, statin Denies any chest pain MATTHIEU ON CKD STAGE III Baseline cr:1.2-1.4 Resolved with IV fluids Avoid nephrotoxic agents when able DM II: Last A1C:8.6 in Aug 2016 Continue ISS, Lantus Accu checks Repeat A1C:7.5 CHRONIC COPD: No signs of exacerbation Patient is on Prednisone 10 mg daily (from steroid taper from 09/2017 given for COPD exacerbation) Continue steroid taper at 5mg daily and then 2.5mg daily PAF ON COUMADIN EKG: sinus rhythm INR therapeutic; cont to monitor continue Coumadin CHRONIC DIASTOLIC CHF No signs of decompensation Last ECHO: In Sep:EF 50-55% Lasix to be resumed on PRN basis only H/O PE continue Coumadin GERD continue PPI DYSLIPIDEMIA continue statin DVT Px On Coumadin CODE STATUS DNR DISPOSITION: Plan to discharge to [facility] today. Vital Signs: Date Time Temp Pulse Resp B/P Pulse Ox O2 Delivery O2 Flow Rate FiO2 11/19/16 15:35 37.2 80 16 125/75 97 Nasal Cannula 2.0 11/19/16 13:20 81 95 11/19/16 12:09 36.9 79 16 102/51 94 2.0 11/19/16 12:00 94 Room Air 2.0 11/19/16 08:00 99 Room Air 2.0 11/19/16 07:32 36.5 76 16 121/69 99 2.0 11/19/16 04:00 Nasal Cannula 2.0 11/19/16 03:59 36.6 81 22 90/49 91 Nasal Cannula 2.0 11/19/16 00:00 Nasal Cannula 2.0 11/18/16 23:28 36.7 70 18 133/73 99 Room Air 11/18/16 20:03 36.3 72 18 108/59 96 2.0 11/18/16 20:00 99 Nasal Cannula 2.0 Lab Results: Results Past 24 Hours Test 11/18/16 18:30 11/18/16 20:31 11/19/16 05:53 11/19/16 07:45 Range/Units Influenza Type A Antigen Neg for Influ A NEG Influenza Type B Antigen Neg for Influ B NEG Bedside Glucose 196 117 70-99 mg/dl White Blood Count 8.94 4.8-10.8 K/uL Red Blood Count 3.22 4.7-6.1 M/uL Hemoglobin 9.9 14.0-18.0 g/dL Hematocrit 31.3 42-52 % Mean Corpuscular Volume 97.2 80-100 fL Mean Corpuscular Hemoglobin 30.7 25-34 pg Mean Corpuscular Hemoglobin Concent 31.6 32-36 g/dl Platelet Count 144 130-400 K/uL Mean Platelet Volume 10.4 7.4-10.4 fL Neutrophils (%) (Auto) 63.1 % Lymphocytes (%) (Auto) 20.2 % Monocytes (%) (Auto) 14.1 % Eosinophils (%) (Auto) 2.2 % Basophils (%) (Auto) 0.1 % Neutrophils # (Auto) 5.63 1.4-6.5 K/uL Lymphocytes # (Auto) 1.81 1.2-3.4 K/uL Monocytes # (Auto) 1.26 0.11-0.59 K/uL Eosinophils # (Auto) 0.20 0-0.5 K/uL Basophils # (Auto) 0.01 0-0.2 K/uL RDW Standard Deviation 52.7 36.4-46.3 fL RDW Coefficient of Variation 14.7 11.5-14.5 % Immature Granulocyte % (Auto) 0.3 % Immature Granulocyte # (Auto) 0.03 0.00-0.02 K/uL Prothrombin Time 16.8 9.0-12.0 SECONDS Prothromb Time International Ratio 1.5 0.9-1.1 Sodium Level 147 136-145 mmol/L Potassium Level 4.4 3.5-5.1 mmol/L Chloride Level 105 98-107 mmol/L Carbon Dioxide Level 37 21-32 mmol/L Anion Gap 5.0 3-11 mmol/L Blood Urea Nitrogen 19 7-18 mg/dl Creatinine 1.40 0.60-1.40 mg/dl Est Creatinine Clear Calc Drug Dose 36.0 ml/min Estimated GFR () 52.0 Estimated GFR (Non- 44.9 BUN/Creatinine Ratio 13.9 10-20 Random Glucose 108 70-99 mg/dl Calcium Level 8.9 8.5-10.1 mg/dl Test 11/19/16 11:37 Range/Units Bedside Glucose 168 70-99 mg/dl
[2016-11-19] MEDS ORDERED: PRD5 PO (16:06)
[2016-11-19] MEDS: WARFARIN SOD 7.5 MG TAB PO SCH (16:09)
--- NOTE | 2016-11-19 16:12 | Discharge Summary ---
Discharge Summary Admission Date: Nov 17, 2016 at 19:49 Discharge Date: Nov 19, 2016 Discharge Disposition: Personal care Principal Diagnosis: Near Syncope, Symptomatic Hypotension Procedures: CXR: IMPRESSION: Mild congestive failure. Consultations: Cardiology Pending Studies/Follow-Up: Follow up with Dr.Amanda Gibson on 11/22/16 at 12:50pm as could not get appointment with Follow up with your physician at [facility] for Coumadin dosage Take medications as prescribed. Seek immediate medical attention if your symptoms reoccur or worsen. Medication Reconciliation New Medications: Prednisone (Prednisone) 5 Mg Tab 5 MG PO DAILY for 10 Days, #12 TAB Start taking 5mg daily for 4 days and then 2.5mg daily for 4 days and then 2.5 mg daily every other day for 4 days and stop Continued Medications: Acetaminophen (Tylenol) 325 Mg Tab 325 MG PO Q6H PRN for Pain, TAB Aspirin (Aspirin Chewable) 81 Mg Chew 81 MG PO DAILY Budesonide/Formoterol Fumarate (Symbicort 160-4.5 Mcg/Act) 60 Puffs/Inhaler Aero 2 PUFFS INH BID for 30 Days, #1 EA Digoxin (Digoxin) 0.125 Mg Tab 0.125 MG PO [id number]@1600 for 30 Days, #30 TAB Dorzolamide Hcl-Timolol Maleat (Cosopt Oph) 1 Simran Simran 1 DROPS OPL BID, ML 3 Refills Insulin Aspart (Novolog Flexpen) 100 Units/Ml Inj 10 SQ TID GIVE AFTER MEALS IF HE EATS MORE THAN 25% OF THE MEAL Insulin Glargine (Lantus Solostar) 100 Unit/Ml Inj 16 SC QPM, PEN Ipratropium-Albuterol (Duoneb) 3 Ml Nebu 1 TREATMENT INH Q4H PRN for SOB/Wheezing, #1 INHA 1 Refill Latanoprost 0.005% Oph (Xalatan 0.005% Oph) Soln 1 DROP OPL HS Metformin Hcl (Glucophage) 500 Mg Tab 500 MG PO BIDM, TAB Nitroglycerin (Nitrostat) 0.4 Mg Tab 0.4 MG UT PRN PRN for Chest Pain, BTL Pantoprazole (Protonix) 40 Mg Tab 40 MG PO DAILY, #30 TAB Rosuvastatin Calcium (Crestor) 20 Mg Tab 20 MG PO HS, TAB Sitagliptin Phosphate (Januvia) 100 Mg Tab 100 MG PO DAILY, TAB Tamsulosin Hcl (Flomax) 0.4 Mg Cap 0.4 MG PO QPM, CAP Tiotropium [place] (Spiriva Handihaler) 5 Puff/90 Mcg Aerp 1 PUFF INH QAM for 30 Days, #30 Warfarin Sod (Jantoven) 7.5 Mg Tab 7.5 MG PO DAILY, TAB TAKE JERRY,,WE,TH,SA Warfarin Sod (Jantoven) 5 Mg Tab 5 MG PO DAILY, TAB TAKE MO & FR Discontinued Medications: Carvedilol (Coreg) 3.125 Mg Tab 3.125 MG PO BIDM, TAB Furosemide (Furosemide) 40 Mg Tab 40 MG PO QAM for 30 Days, #30 TAB Prednisone Tab (Prednisone) 10 Mg Tab 10 MG PO DAILY, TAB Admission Information HPI (per Admitting provider): This is an 86 y/o male with PMHx of CKD stage 3, CAD s/p CABG, s/p AVR, IDDM, Afib on Coumadin, Diastolic CHF on Lasix, Dyslipidemia and other problems as outlined below who presents to the ED from [facility] with near-syncopal episode this afternoon. Pt has been residing at [facility] for rehabilitation since an admission for CHF in June 2016. He has been having trouble with hypotension for the past few months and was recently taken off all of his antihypertensive medications (aside from metoprolol). Today, nursing staff stood the patient up to check orthostatic vitals and his BP dropped significantly and he passed out. Per patient he does not think that he completely lost consciousness. He denies hitting his head. Pt denies fever/ chills, diaphoresis, chest pain, palpitations, SOB, abd pain, N/V, bowel or bladder issues, LE edema and calf pain. In the ED, patient was hypotensive on arrival. Pt is afebrile with no leukocytosis. HgB 11.3. creat 1.7. Trop 0.159. EKG no acute ischemic change. CXR mild congestion. Pt received gentle fluid in ED and will be admitted for further evaluation and treatment. Physical Exam (per Admitting): General Appearance: WD/WN, no apparent distress, + pertinent finding (Pt is laying comfortably in bed ) Head: normocephalic, atraumatic Eyes: normal inspection, PERRL, EOMI, + pertinent finding (R eye opaque ( chronic finding)) ENT: hearing grossly normal Neck: supple Respiratory/Chest: chest non-tender, lungs clear, normal breath sounds, no respiratory distress Cardiovascular: regular rate, rhythm, no edema, no murmur Abdomen/GI: normal bowel sounds, non tender, soft Back: normal inspection Extremities/Musculoskelatal: normal inspection, no calf tenderness, no pedal edema Neurologic/Psych: alert, normal mood/affect, oriented x 3 Skin: normal color, warm/dry Hospital Course NEAR-SYNCOPAL: Secondary to Hypotension H/O recent outpatient beta mario regimen changes (outpatient Lopressor recently switched to Coreg) Coreg, Lasix held during hospitalization Continue digoxin, flomax IVF PRN for hypotension/dizziness and reassess Appreciate cardiology input Plan: Stop Coreg Lasix to be used on PRN basis only Symptoms completely resolved ELEVATED TROPONIN H/O CAD s/p CABG, hx bioprosthetic AVR Trop 0.159; chronically elevated trop EKG-no acute ischemic change cont ASA, statin Denies any chest pain MATTHIEU ON CKD STAGE III Baseline cr:1.2-1.4 Resolved with IV fluids Avoid nephrotoxic agents when able DM II: Last A1C:8.6 in Aug 2016 Continue ISS, Lantus Accu checks Repeat A1C:7.5 CHRONIC COPD: No signs of exacerbation Patient is on Prednisone 10 mg daily (from steroid taper from 09/2017 given for COPD exacerbation) Continue steroid taper at 5mg daily and then 2.5mg daily PAF ON COUMADIN EKG: sinus rhythm INR therapeutic; cont to monitor continue Coumadin CHRONIC DIASTOLIC CHF No signs of decompensation Last ECHO: In Dec:EF 50-55% Lasix to be resumed on PRN basis only H/O PE continue Coumadin GERD continue PPI DYSLIPIDEMIA continue statin DVT Px On Coumadin CODE STATUS DNR DISPOSITION: Plan to discharge to [facility] today. Total time spent on discharge = This includes examination of the patient, discharge planning, medication reconciliation, and communication with other providers. Discharge Instructions Discharge Instructions Admission Reason for Admission: Near Syncope Discharge Discharge Diagnosis / Problem: Near Syncope, Symptomatic Hypotension Discharge Goals Goal(s): Decrease discomfort, Improve function Activity Recommendations Activity Limitations: resume your previous activity Exercise/Sports Limitations: as tolerated . Instructions / Follow-Up Instructions / Follow-Up Follow up with Dr.Amanda Gibson on 11/22/16 at 12:50pm as could not get appointment with Follow up with your physician at [facility] for coumadin dosage Take medications as prescribed. Seek immediate medical attention if your symptoms reoccur or worsen. Current Hospital Diet Patient's current hospital diet: Diabetes Type 2 Diet Discharge Diet Recommended Diet: Diabetes Type 2 Diet Pending Studies Studies pending at discharge: no Laboratory Results Hemoglobin A1c Test 11/17/16 17:10 Range/Units Estimated Average Glucose 169 mg/dl Hemoglobin A1c 7.5 H 4.5-5.6 % Medical Emergencies . Who to Call and When: Medical Emergencies: If at any time you feel your situation is an emergency, please call 911 immediately. . Non-Emergent Contact Non-Emergency issues call your: Primary Care Provider Call Non-Emergent contact if: you have a fever, you have any medication questions Lightheadedness, chest pain or any other problems . . "Provider Documentation" section prepared by Scout Mayes. VTE Core Measure Inpt VTE Proph given/why not?: Warfarin (Coumadin)
== END 2016-11-19 18:15 | disposition home or self-care (01) ==
LOC: ENRESERVTM → ENRESERVDT → EDBD 16:48 → C.EDB 16:50 → C.MED 19:49
PROVIDERS: ADMIT Internal Medicine; ATTEND Internal Medicine
DX: R55 Syncope and collapse (principal); I95.9 Hypotension, unspecified; R79.89 Other specified abnormal findings of blood chemistry; J44.9 Chronic obstructive pulmonary disease, unspecified; J96.10 Chronic respiratory failure, unspecified whether with hypoxia or hypercapnia; N17.9 Acute kidney failure, unspecified; I44.2 Atrioventricular block, complete; J84.9 Interstitial pulmonary disease, unspecified; I08.3 Combined rheumatic disorders of mitral, aortic and tricuspid valves; N18.3 Chronic kidney disease, stage 3 (moderate); I50.32 Chronic diastolic (congestive) heart failure; I25.10 Atherosclerotic heart disease of native coronary artery without angina pectoris; K21.9 Gastro-esophageal reflux disease without esophagitis; I73.9 Peripheral vascular disease, unspecified; E86.0 Dehydration; N40.0 Benign prostatic hyperplasia without lower urinary tract symptoms; E11.9 Type 2 diabetes mellitus without complications; I48.0 Paroxysmal atrial fibrillation; E78.5 Hyperlipidemia, unspecified; Z66 Do not resuscitate; Z79.82 Long term (current) use of aspirin; Z79.4 Long term (current) use of insulin; Z79.01 Long term (current) use of anticoagulants; Z95.1 Presence of aortocoronary bypass graft; Z99.81 Dependence on supplemental oxygen; Z95.0 Presence of cardiac pacemaker; Z87.891 Personal history of nicotine dependence